=== PATIENT | male | born 1980 | race Caucasian/White ===

== ENCOUNTER 2017-11-13 11:57 | Inpatient (IN) | payer MEDICAID ==
[~2017-11-13] VITALS: Ht 172.7 cm; Wt 82.8 kg
[~2017-11-13 11:57] MED LIST: BENA40TA2 PO; HYDR25TA4 PO
[2017-11-13 12:02] VITALS: BP_SYST 190
[2017-11-13] MEDS ORDERED: BENAZEPRIL HCL 20 MG TABLET (LOTENSIN) PO ONE (12:30)
[2017-11-13] MEDS ORDERED: LOSARTAN POTASSIUM 25 MG TABLET PO ONE (12:30)
[2017-11-13] MEDS ORDERED: cloNIDine HCL 0.2 MG TABLET PO PRN (14:45)
[2017-11-13 14:58] LABS: BASOPHILS # (AUTO) 0.1 K/uL (0.0-0.2); BASOPHILS % (AUTO) 1.5 % (0.0-2.0); EOSINOPHILS # (AUTO) 0.4 K/uL (0.0-0.4); EOSINOPHILS % (AUTO) 5.5 % (0.0-4.0); HEMATOCRIT 39.5 % (36-54); HEMOGLOBIN 13.2 g/dL (14.0-18.0); LYMPHOCYTES # (AUTO) 1.3 K/uL (1.0-5.5); LYMPHOCYTES % (AUTO) 16.1 % (20.5-51.5); MEAN CORPUSCULAR HEMOGLOBIN 28 pg (27-31); MEAN CORPUSCULAR HGB CONC 34 % (32-36); MEAN CORPUSCULAR VOLUME 85 fL (79.0-98.0); MONOCYTES # (AUTO) 0.6 K/uL (0.0-1.0); NEUTROPHILS # (AUTO) 5.5 K/uL (1.8-7.7); NEUTROPHILS % (AUTO) 69.9 % (40.0-70.0); PLATELET COUNT (AUTO) 256 K/uL (130-430); RED BLOOD CELL COUNT(AUTO) 4.65 MIL/uL (4.2-6.2); RED CELL DISTRIBUTION WIDTH 12.6 % (9.0-15.0); WHITE BLOOD COUNT (AUTO) 7.9 K/uL (4.8-10.8)
[2017-11-13 15:14] LABS: CALCIUM 8.9 mg/dL (8.4-11.0); POTASSIUM 4.1 mmol/L (3.5-5.1)
[2017-11-13 15:19] LABS: ALBUMIN 3.4 g/dL (3.4-4.8); TOTAL BILIRUBIN 0.6 mg/dL (0.0-1.0)
[2017-11-13] MEDS ORDERED: LORazepam 2 MG/ML VIAL (FOR ER USE) IVP ONE (15:30)
[2017-11-13 15:49] VITALS: BP_SYST 192
[2017-11-13] MEDS ORDERED: HYDROCHLOROTHIAZIDE 25 MG TABLET (HCTZ) PO ONE (16:00)
[2017-11-13] MEDS ORDERED: ONDANSETRON HCL 4 MG/2 ML VIAL IVP PRN (16:00)
[2017-11-13] MEDS ORDERED: LORazepam 2 MG/ML VIAL IVP PRN (16:00)
[2017-11-13] MEDS ORDERED: DOCUSATE SODIUM 100 MG CAPSULE PO PRN (16:00)
[2017-11-13] MEDS ORDERED: MORPHINE 2 MG/ML INJ. SYRINGE IVP PRN ×2 (16:00)
[2017-11-13] MEDS ORDERED: MUPIROCIN 2% TOPICAL OINTMENT 22 GM NS PRN (16:00)
[2017-11-13] MEDS ORDERED: POTASSIUM CHLORIDE 20 MEQ TAB.PRT.SR PO PRN (16:00)
[2017-11-13] MEDS ORDERED: MAGNESIUM SULFATE 50 ML IV PRN (16:00)
[2017-11-13 16:30] VITALS: BP_SYST 156
[2017-11-13] MEDS: NACL 0.9% 1,000 ML IV SCH (18:09)
[2017-11-13 18:13] VITALS: BP_SYST 175
[2017-11-13 20:52] LABS: BARBITURATE, URINE NEGATIVE (NEG <=200); BENZODIAZEPINE, URINE NEGATIVE (NEG <=150); CANNABINOID, URINE NEGATIVE (NEG <=50); COCAINE, URINE NEGATIVE (NEG <=150); METHAMPHETAMINES SCREEN,URINE POSITIVE (NEG <=500); OPIATE, URINE NEGATIVE (NEG <=100); PHENCYCLIDINE SCREEN,URINE NEGATIVE (NEG <=25); UR TRICYCLIC ANTIDEPRESSANTS NEGATIVE (NEG <=300); URINE AMPHETAMINE POSITIVE (NEG <=500); URINE METHADONE NEGATIVE (NEG <=200); URINE OXYCODONE SCREEN NEGATIVE (NEG <=100); URINE PROPOXYPHENE SCREEN NEGATIVE (NEG <=300)
[2017-11-13] MEDS ORDERED: ZOLPIDEM TARTRATE 5 MG TABLET PO PRN (21:00)
[2017-11-13] MEDS: LISINOPRIL 10 MG TABLET (PRINIVIL) PO SCH (21:12)
[2017-11-13] MEDS: HEPARIN SODIUM,PORCINE 5000 UNITS/ML VIAL SUBCUT SCH (21:13)
[2017-11-14] VITALS (7 sets, daily range): BP systolic 129–176
[2017-11-14] MEDS: ACETAMINOPHEN 325 MG TABLET PO PRN ×3 (01:28→22:36)
[2017-11-14] MEDS: NACL 0.9% 1,000 ML IV SCH ×3 (05:28→15:11)
[2017-11-14 07:28] LABS: BASOPHILS # (AUTO) 0.1 K/uL (0.0-0.2); BASOPHILS % (AUTO) 0.5 % (0.0-2.0); EOSINOPHILS # (AUTO) 0.1 K/uL (0.0-0.4); EOSINOPHILS % (AUTO) 1.4 % (0.0-4.0); HEMATOCRIT 42.7 % (36-54); HEMOGLOBIN 14.2 g/dL (14.0-18.0); LYMPHOCYTES # (AUTO) 0.9 K/uL (1.0-5.5); LYMPHOCYTES % (AUTO) 8.3 % (20.5-51.5); MEAN CORPUSCULAR HEMOGLOBIN 29 pg (27-31); MEAN CORPUSCULAR HGB CONC 33 % (32-36); MEAN CORPUSCULAR VOLUME 86 fL (79.0-98.0); MONOCYTES # (AUTO) 0.2 K/uL (0.0-1.0); MONOCYTES % (AUTO) 2.3 % (1.7-9.3); NEUTROPHILS # (AUTO) 9.1 K/uL (1.8-7.7); PLATELET COUNT (AUTO) 261 K/uL (130-430); RED BLOOD CELL COUNT(AUTO) 4.96 MIL/uL (4.2-6.2); RED CELL DISTRIBUTION WIDTH 12.3 % (9.0-15.0); WHITE BLOOD COUNT (AUTO) 10.4 K/uL (4.8-10.8)
[2017-11-14 07:43] LABS: CALCIUM 9.1 mg/dL (8.4-11.0); CREATININE 2.78 mg/dL (0.55-1.30)
[2017-11-14] MEDS ORDERED: HYDR50TA3 PO (08:02)
[2017-11-14] MEDS: HEPARIN SODIUM,PORCINE 5000 UNITS/ML VIAL SUBCUT SCH ×2 (08:27→22:42)
[2017-11-14] MEDS: LISINOPRIL 10 MG TABLET (PRINIVIL) PO SCH (08:28)
[2017-11-14] MEDS ORDERED: HYDROCHLOROTHIAZIDE 25 MG TABLET (HCTZ) PO SCH (09:00)
[2017-11-14 10:47] LABS: NEUTROPHILS % (AUTO) 87.5 % (40.0-70.0)
[2017-11-14] MEDS ORDERED: hydrALAZINE HCL 25 MG TABLET PO ONE (11:45)
[2017-11-14] MEDS ORDERED: hydrALAZINE HCL 25 MG TABLET PO SCH (15:00)
[2017-11-14] MEDS ORDERED: NIFEDIPINE 30 MG TAB.ER.24 PO SCH (15:00)
[2017-11-14] MEDS ORDERED: NIFEDIPINE 30 MG TAB.ER.24 PO ONE (15:30)
[2017-11-14] MEDS ORDERED: METOPROLOL TARTRATE 50 MG TABLET PO SCH (21:00)
[2017-11-15 00:30] VITALS: BP_SYST 141
[2017-11-15 00:52] VITALS: BP_SYST 129
== END 2017-11-15 01:28 | DRG 199 ==
LOC: SED 11:57 → STU 14:43
PROVIDERS: ADMIT General Practice; ATTEND General Practice
DX: I10 Essential (primary) hypertension (principal); N17.0 Acute kidney failure with tubular necrosis; F15.10 Other stimulant abuse, uncomplicated; F12.10 Cannabis abuse, uncomplicated; F17.210 Nicotine dependence, cigarettes, uncomplicated; Z79.899 Other long term (current) drug therapy
CPT/HCPCS: 36415; 71045; 76770; 80048; 80053; 80307; 83735-TC; 84443-TC; 84484; 85025; 93005; 99285; J1644; J2060; J7030

== ENCOUNTER 2020-08-27 00:05 | Inpatient (IN) | payer OTHER, MEDICAID, SELFPAY ==
[~2020-08-27] VITALS: Ht 175.3 cm; Wt 84.4 kg
[2020-08-27] VITALS (8 sets, daily range): BP systolic 144–181
[~2020-08-27 00:05] MED LIST changes: -BENA40TA2 PO; -HYDR25TA4 PO; +HYDR50TA3 PO
--- NOTE | 2020-08-27 00:08 | NUR ---
pt. brought in by [facility] and placed in er bed 8
--- NOTE | 2020-08-27 00:09 | NUR ---
PT. [facility] PT. DISCHARGED FROM [facility] ON 08/22/2020 AFTER TRASNFUSION OF [facility] FOR COVID POSITIVE TESTING PT. IS ON DIALYSIS - AND HAS RECENTLY BEEN SOB AND RESTLESS x1 DAY PT. STATES HE RECEIVED DIALYSIS TODAY PT. HAS NO PAIN PT. ALLERGIES HISTORY OF DIALYSIS AND HTN PT. SATURATION IS AT 85% ON ROOM AIR
--- NOTE | 2020-08-27 00:10 | NUR ---
PT. PLACED ON 4LPM O2 VIA NASAL CANNULA O2 SATURATION UP TO 95% IN SEMI FOWLERS POSITION
--- NOTE | 2020-08-27 00:10 | NUR ---
ER at bedside examining patient.
[2020-08-27] MEDS ORDERED: NACL 0.9% 1,000 ML IV ONE (00:30)
--- NOTE | 2020-08-27 00:38 | NUR ---
MRSA SWAB OF NARES PERFORMED AT BED BEDSIDE PT. TOLERATED WELL
[2020-08-27] MEDS ORDERED: ACETAMINOPHEN 500 MG TABLET PO ONE (00:45)
[2020-08-27 00:57] LABS: BASOPHILS % (AUTO) 0.4 % (0.0-2.0); EOSINOPHILS % (AUTO) 0.3 % (0.0-4.0); HEMATOCRIT 25.8 % (36-54); HEMOGLOBIN 8.6 g/dL (14.0-18.0); LYMPHOCYTES # (AUTO) 0.4 K/uL (1.0-5.5); LYMPHOCYTES % (AUTO) 4.5 % (20.5-51.5); MEAN CORPUSCULAR HEMOGLOBIN 31 pg (27-31); MEAN CORPUSCULAR HGB CONC 33 % (32-36); MEAN CORPUSCULAR VOLUME 94 fL (79.0-98.0); MONOCYTES # (AUTO) 0.4 K/uL (0.0-1.0); MONOCYTES % (AUTO) 4.5 % (1.7-9.3); NEUTROPHILS # (AUTO) 7.3 K/uL (1.8-7.7); NEUTROPHILS % (AUTO) 90.3 % (40.0-70.0); PLATELET COUNT (AUTO) 150 K/uL (130-430); RED BLOOD CELL COUNT(AUTO) 2.75 MIL/uL (4.2-6.2); RED CELL DISTRIBUTION WIDTH 13.3 % (9.0-15.0); WHITE BLOOD COUNT (AUTO) 8.1 K/uL (4.8-10.8)
--- NOTE | 2020-08-27 01:03 | NUR ---
CRITICAL LAB REPORTING - COVID POSITIVE. AWARE
[2020-08-27 01:15] LABS: CALCIUM 8.4 mg/dL (8.4-11.0); POTASSIUM 5.1 mmol/L (3.5-5.1); PROTHROMBIN TIME 10.5 SECS (9.5-12.5); TOTAL BILIRUBIN 0.5 mg/dL (0.0-1.0)
--- NOTE | 2020-08-27 01:15 | NUR ---
NOTIFIED OF PT. RESTLESSNESS PT. RESPERATION SIN THE 40'S AND PUSLE OX ON 4LPM VIA NASAL CANNULA ONLY AT 88-92% RT PAGED FOR TREATMENT
[2020-08-27] MEDS ORDERED: LevALBUTEROL HCL 1.25 MG/0.5 ML *CONC.* VIAL.NEB (XOPENEX CONC.) INH ONE ×2 (01:21→01:30)
[2020-08-27 01:26] LABS: C-REACTIVE PROTEIN QUANT 11.8 mg/dL (0-0.5)
[2020-08-27] MEDS ORDERED: LORazepam 2 MG/ML VIAL IVP ONE (01:30)
--- NOTE | 2020-08-27 01:30 | NUR ---
RT AT BEDSIDE PLACED PT ON 9LPM OXIMIZER MASK AND XOPENEX AEROSOL TREATMENT
[2020-08-27 01:31] LABS: CREATININE 13.08 mg/dL (0.55-1.30)
[2020-08-27] MEDS ORDERED: ONDANSETRON HCL 4 MG/2 ML VIAL ONE (01:31)
[2020-08-27] MEDS ORDERED: ONDANSETRON HCL 4 MG/2 ML VIAL IVP ONE (01:45)
[2020-08-27] MEDS ORDERED: ASPIRIN 81 MG TAB.CHEW PO ONE (01:45)
--- NOTE | 2020-08-27 01:45 | NUR ---
PT. RESTING IN BED O2 SATURATION ABOVE 95% AFTER TREATMENT AND RESPIRATIONS <30 PT TOLERATED TREATMENT WELL AND NO LONGER RESTLESS
--- NOTE | 2020-08-27 01:50 | NUR ---
ADMIT ORDERS RECEIVED FROM DR. MANDUJANO. TELE BED ORDERED
[2020-08-27] MEDS ORDERED: FURO80TA86 PO (02:08)
[2020-08-27] MEDS ORDERED: COR12.5 PO (02:09)
[2020-08-27] MEDS ORDERED: REN800 PO (02:09)
[2020-08-27] MEDS ORDERED: NEPH PO (02:11)
[2020-08-27] MEDS ORDERED: HYDR-4039 PO (02:11)
--- NOTE | 2020-08-27 02:58 | NUR ---
PT REPORT GIVEN AT BEDSIDE TO ELEUTERIO BRUNO WHO WILL ASSUME CARE
--- NOTE | 2020-08-27 03:30 | NUR ---
Transfer to TELE ROOM 120 via ACLS protocol. Licensed nurse present. IV present no signs or symptoms of infiltration.
--- NOTE | 2020-08-27 03:35 | NUR ---
ADMISSION NOTE Received patient from ER via gurney. Patient admitted with diagnosis of COVID POSITIVE, RENAL FAILURE. Patient is awake, alert, oriented X 3. Patient oriented to hospital room, call light, toileting, pain management and safety-teach back done. Patient informed that YOVANNY will be HIS nurse and that their room number is 120B. Personal belongings checked and Belongings List documented. Call light within reach.
--- NOTE | 2020-08-27 03:50 | NUR ---
Paged Dr. Marley Carlos
--- NOTE | 2020-08-27 04:00 | NUR ---
STAT CONSULT PAGED Reason for Consultation: COVID Was consult called: Y Person who was notified: Daly Consulting Physician: Dr. Metz (Dr. Mendoza is contract technician) Ordering Physician: Carlos Doherty
--- NOTE | 2020-08-27 04:02 | NUR ---
STAT CONSULT PAGED Reason for Consultation: ESRD Was consult called: Y Person who was notified: [place]aly Consulting Physician: Loren Field (Dr. Powell is transportation broker) Ordering Physician: Carlos Doherty
--- NOTE | 2020-08-27 04:10 | NUR ---
INITIAL NOTE AT INITIAL ASSESSMENT, PATIENT IS VERY SLEEPY BUT AROUSABLE, STABLE, NO SIGNS OF RESPIRATORY DISTRESS. PATIENT VERBALIZES NO PAIN. PLAN OF CARE FOR THE EVENING IS COMMUNICATED WITH THE PATIENT. PATIENT DEMONSTRATES CORRECT USAGE OF CALL LIGHT AT THIS TIME. BED IS LOCKED, ALARMED, AND AT THE LOWEST LEVEL. FALL SAFETY EDUCATION PROVIDED. FALL, SAFETY, ASPIRATION, ISOLATION, AND RESPIRATORY PRECAUTIONS WILL BE TAKEN THROUGHOUT THE SHIFT.
[2020-08-27] MEDS ORDERED: ACETAMINOPHEN 325 MG TABLET PO PRN (06:30)
[2020-08-27] MEDS ORDERED: ALBUTEROL SULFATE 0.083% 2.5 MG/3 ML VIAL.NEB INH PRN (06:30)
[2020-08-27] MEDS ORDERED: LORazepam 2 MG/ML VIAL IVP PRN (06:30)
[2020-08-27] MEDS ORDERED: HYDROcodone/ACETAMIN 5-325 MG TAB (NORCO/ VICODIN) PO PRN (06:30)
[2020-08-27] MEDS ORDERED: ONDANSETRON HCL 4 MG/2 ML VIAL IVP PRN (06:30)
[2020-08-27] MEDS ORDERED: NALOXONE HCL 0.4 MG/ML AMP (NARCAN) IVP PRN ×2 (06:30)
[2020-08-27] MEDS ORDERED: HYDROcodone/ACETAMIN 10-325 MG TAB PO PRN (06:30)
--- NOTE | 2020-08-27 06:45 | NUR ---
CONSULT CARDIOLOGY ELEVATED TROPONIN DR MANDUJANO,[facility] [place] [id number] S/W DIOGO EXCHANGE
--- NOTE | 2020-08-27 06:50 | NUR ---
CLOSING NOTE PATIENT WAS VERY SLEEPY DURING THE SHIFT, HE WAS TOO SLEEPY TO BE ABLE TO ANSWER MOST ASSESSMENT QUESTIONS. HE SLEPT WELL THROUGHOUT THE SHIFT, NO SHORTNESS OF BREATH NOTED. AT THIS TIME, PATIENT IS RESTING IN BED, STABLE, NO SIGNS OF RESPIRATORY DISTRESS. CALL LIGHT IS WITHIN REACH. BED IS LOCKED, ALARMED, AND AT THE LOWEST LEVEL. FALL, SAFETY, ASPIRATION, ISOLATION, AND RESPIRATORY PRECAUTIONS HAVE BEEN TAKEN THROUGHOUT THE SHIFT. WILL CONTINUE TO MONITOR UNTIL SHIFT REPORT IS GIVEN AT BEDSIDE TO AM NURSE.
--- NOTE | 2020-08-27 07:40 | NUR ---
Nutrition Update Elijah Scale 18 noted. Pt admitted for COVID-19 Positive, Renal failure Diet: no diet order BMI: 27.2 kg/m2 RD to follow per nutrition care standards.
--- NOTE | 2020-08-27 07:40 | NUR ---
HIGH ALERT NOTE: Called Dr. MARADIAGA back at [phone] identified within the medical roster to verify physician authenticity.
[2020-08-27] MEDS ORDERED: hydrALAZINE HCL 20 MG/ML VIAL IVP PRN (07:45)
--- NOTE | 2020-08-27 08:00 | NUR ---
AM ROUNDS: PATIENT COVID 19 POSITIVE.CONTACT AIRBORNE AND DROPLET PRECAUTION RENDERED. ON OXYMIZER @ 4L/IN,GOOD SATURATION. PATIENT SLEEPING DURING ROUNDS.
[2020-08-27 08:12] LABS: BASOPHILS % (AUTO) 0.5 % (0.0-2.0); EOSINOPHILS % (AUTO) 0.1 % (0.0-4.0); HEMATOCRIT 26.5 % (36-54); HEMOGLOBIN 8.7 g/dL (14.0-18.0); LYMPHOCYTES # (AUTO) 0.6 K/uL (1.0-5.5); MEAN CORPUSCULAR HEMOGLOBIN 31 pg (27-31); MEAN CORPUSCULAR HGB CONC 33 % (32-36); MEAN CORPUSCULAR VOLUME 94 fL (79.0-98.0); MONOCYTES # (AUTO) 0.3 K/uL (0.0-1.0); MONOCYTES % (AUTO) 3.4 % (1.7-9.3); NEUTROPHILS # (AUTO) 7.6 K/uL (1.8-7.7); PLATELET COUNT (AUTO) 157 K/uL (130-430); RED CELL DISTRIBUTION WIDTH 13.7 % (9.0-15.0); WHITE BLOOD COUNT (AUTO) 8.5 K/uL (4.8-10.8)
[2020-08-27 08:45] LABS: CALCIUM 8.4 mg/dL (8.4-11.0); POTASSIUM 5.6 mmol/L (3.5-5.1)
[2020-08-27] MEDS: hydrALAZINE HCL 25 MG TABLET PO SCH ×3 (08:55→21:12)
[2020-08-27] MEDS: HYDROCHLOROTHIAZIDE 25 MG TABLET (HCTZ) PO SCH (08:55)
[2020-08-27] MEDS: CARVEDILOL 12.5 MG TABLET (COREG) PO SCH (08:55)
[2020-08-27] MEDS: NEPHROVITE, (FOLIC ACID/VITAMIN B COMP W-C 1 TAB) PO SCH (08:56)
[2020-08-27] MEDS: FUROSEMIDE 80 MG TABLET PO SCH (08:56)
[2020-08-27] MEDS: SEVELAMER CARBONATE 800 MG TABLET PO SCH (08:56)
[2020-08-27 08:58] LABS: ALBUMIN 2.6 g/dL (3.4-4.8); TOTAL BILIRUBIN 0.5 mg/dL (0.0-1.0)
[2020-08-27] MEDS ORDERED: cefTRIAXone 1 GM IVPB PREMIX 50 ML IV SCH (09:00)
[2020-08-27] MEDS ORDERED: SEVELAMER HCL Non-Formulary 800 MG TABLET PO SCH (09:00)
[2020-08-27 09:44] LABS: CREATININE 13.76 mg/dL (0.55-1.30)
[2020-08-27] MEDS: IPRATROPIUM BROM 0.5 MG/2.5 ML VIAL.NEB (ATROVENT) INH SCH ×3 (10:43→15:00)
[2020-08-27] MEDS: AZITHROMYCIN 500 MG in NS 250 ML IV SCH (11:10)
--- NOTE | 2020-08-27 12:03 | NUR ---
HD: HD STARTED BY FELICIANO. STABLE.
[2020-08-27] MEDS ORDERED: NORMAL SALINE 5 ML DISP.SYRIN IVF SCH (14:00)
--- NOTE | 2020-08-27 15:03 | NUR ---
HD FINISH: HD FINISHED. OUT=3LITERS.
[2020-08-27] MEDS: ACETAMINOPHEN 325 MG TABLET PO PRN (15:08)
[2020-08-27] MEDS: NORMAL SALINE 5 ML DISP.SYRIN IVF SCH ×2 (15:09→21:12)
--- NOTE | 2020-08-27 15:23 | NUR ---
Called pts mother: Left message to pt's mother P#[phone].
[2020-08-27] MEDS ORDERED: *LOVENOX 1MG/KG Q24H/PHARMACY XX ONE (17:45)
[2020-08-27] MEDS ORDERED: IVERMECTIN 3 MG TABLET PO ONE (17:45)
[2020-08-27] MEDS: CEFEPIME 1 GM in D5W 50 ML IV SCH (17:45)
[2020-08-27] MEDS: ENOXAPARIN SODIUM 80 MG/0.8 ML SYRINGE SUBCUT SCH (18:00)
[2020-08-27] MEDS: DEXAMETHASONE SOD PHOSPHATE 10 MG/ML VIAL IVP SCH (18:00)
--- NOTE | 2020-08-27 19:30 | NUR ---
END OF SHIFT: ENDORSED TO NIGHT NURSE KONG,PATIENT IN STABLE CONDITION. MAINTAINED ON OXYMIZER @ 4L/MIN.WITH GOOD SATURATION. SAFETY MEASURES RENDERED.
--- NOTE | 2020-08-27 20:45 | NUR ---
Opening notes Pt AAOx4, VSS, afebrile. No s/s distress noted. Pt on O2 via Oxymizer saturation at 97%. IV saline lock R. AC 18G no s/s infiltration. L arm AV shunt, thrill and bruit present. Call light within reach. Bed low, locked siderails up x2. To monitor.
--- NOTE | 2020-08-27 23:40 | NUR ---
Rounds Pt awake, no s/s distress noted. [place] provided per pt request. Call light within reach. Safety maintained. To monitor.
[2020-08-28] VITALS: BP_SYST 177
--- NOTE | 2020-08-28 01:50 | NUR ---
Consent/BP med Pt informed of Dora ULRICH order for Convalescent plasma. Pt agreeable but states he received it from [facility] a week ago. Informed pt of BP 177/95. Pt refused BP med at this time. Pt aware of risk/benefit Pt denies discomfort or headache. Call light within reach. To monitor.
--- NOTE | 2020-08-28 05:30 | NUR ---
Closing notes Pt asleep, no s/s distress noted. Pt on O2 via Oxymizer saturation at 96%. IV saline lock R. AC 18G no s/s infiltration. Call light within reach. Bed low, locked siderails up x2. Covid isolation maintained. To endorse to AM nurse re convalescent plasma. Consent in chart.
[2020-08-28] MEDS: NORMAL SALINE 5 ML DISP.SYRIN IVF SCH ×3 (06:52→20:51)
[2020-08-28 07:58] LABS: BASOPHILS % (AUTO) 0.1 % (0.0-2.0); HEMATOCRIT 29.9 % (36-54); HEMOGLOBIN 10.1 g/dL (14.0-18.0); LYMPHOCYTES # (AUTO) 0.3 K/uL (1.0-5.5); LYMPHOCYTES % (AUTO) 4.3 % (20.5-51.5); MEAN CORPUSCULAR HEMOGLOBIN 31 pg (27-31); MEAN CORPUSCULAR HGB CONC 34 % (32-36); MEAN CORPUSCULAR VOLUME 93 fL (79.0-98.0); MONOCYTES # (AUTO) 0.2 K/uL (0.0-1.0); MONOCYTES % (AUTO) 2.3 % (1.7-9.3); NEUTROPHILS # (AUTO) 7.2 K/uL (1.8-7.7); NEUTROPHILS % (AUTO) 93.3 % (40.0-70.0); PLATELET COUNT (AUTO) 183 K/uL (130-430); RED BLOOD CELL COUNT(AUTO) 3.22 MIL/uL (4.2-6.2); RED CELL DISTRIBUTION WIDTH 13.4 % (9.0-15.0); WHITE BLOOD COUNT (AUTO) 7.7 K/uL (4.8-10.8)
[2020-08-28 08:09] LABS: CALCIUM 8.8 mg/dL (8.4-11.0); PHOSPHORUS 7.8 mg/dL (2.7-4.5); POTASSIUM 5.3 mmol/L (3.5-5.1)
--- NOTE | 2020-08-28 08:10 | NUR ---
AM ROUNDS: PATIENT ON THE BED AWAKE,ALERT AND ORIENTED X4. NON LABORED.ON OXYMIZER @ 3L/MIN.GOOD SATURATION. CALL LIGHT WITH IN REACH. BED LOCKED AT LOWEST POSITION. NO NEEDS THIS TIME.
[2020-08-28 08:16] LABS: CREATININE 10.9 mg/dL (0.55-1.30)
[2020-08-28 08:42] LABS: C-REACTIVE PROTEIN QUANT 14.9 mg/dL (0-0.5)
[2020-08-28] MEDS: hydrALAZINE HCL 25 MG TABLET PO SCH ×3 (08:50→20:52)
[2020-08-28] MEDS: FUROSEMIDE 80 MG TABLET PO SCH (08:51)
[2020-08-28] MEDS: HYDROCHLOROTHIAZIDE 25 MG TABLET (HCTZ) PO SCH (08:51)
[2020-08-28] MEDS: CARVEDILOL 12.5 MG TABLET (COREG) PO SCH (08:51)
[2020-08-28] MEDS: SEVELAMER CARBONATE 800 MG TABLET PO SCH (08:52)
[2020-08-28] MEDS: NEPHROVITE, (FOLIC ACID/VITAMIN B COMP W-C 1 TAB) PO SCH (08:52)
[2020-08-28 08:57] VITALS: BP_SYST 167
[2020-08-28] MEDS: AZITHROMYCIN 500 MG in NS 250 ML IV SCH (09:44)
[2020-08-28] MEDS: IPRATROPIUM BROM 0.5 MG/2.5 ML VIAL.NEB (ATROVENT) INH SCH (11:00)
[2020-08-28] MEDS ORDERED: ALBUTEROL MDI INHALATION 8 GM INH INH PRN (12:15)
[2020-08-28 12:37] VITALS: BP_SYST 151
[2020-08-28] MEDS: ACETAMINOPHEN 325 MG TABLET PO PRN (13:05)
[2020-08-28 16:13] VITALS: BP_SYST 169
[2020-08-28] MEDS: DEXAMETHASONE SOD PHOSPHATE 10 MG/ML VIAL IVP SCH (17:21)
[2020-08-28] MEDS: CEFEPIME 1 GM in D5W 50 ML IV SCH (17:21)
[2020-08-28] MEDS: ENOXAPARIN SODIUM 80 MG/0.8 ML SYRINGE SUBCUT SCH (17:23)
[2020-08-28 18:35] VITALS: BP_SYST 159
--- NOTE | 2020-08-28 19:20 | NUR ---
END OF SHIFT: ENDORSED TO NIGHT NURSE KONG,PATIENT IN STABLE CONDITION. MAINTAINED OXYMIZER @ 2L/MIN.WITH GOOD SATURATION.CALL LIGHT WITH IN REACH. SAFETY MEASURES RENDERED. NO NEEDS THIS TIME.
--- NOTE | 2020-08-28 19:50 | NUR ---
Opening notes Pt AAOx4, VSS, afebrile. No s/s distress noted. Pt on O2 via 2L Oxymizer saturation at 96%. IV saline lock R. AC 18G no s/s infiltration. L arm AV shunt, thrill and bruit present. Call light within reach. Bed low, locked siderails up x2. Covid isolation maintained. To monitor.
[2020-08-28 20:00] VITALS: BP_SYST 144
--- NOTE | 2020-08-28 21:00 | NUR ---
Rounds Pt awake, no s/s distress noted. Meds passed. [place] provided per pt request. Call light within reach. Safety maintained. To monitor.
[2020-08-29 00:25] VITALS: BP_SYST 165
--- NOTE | 2020-08-29 00:25 | NUR ---
Rounds Pt awake, no s/s distress noted. O2 via oxymizer on. Call light within reach. Safety/Covid isolation maintained. To monitor.
--- NOTE | 2020-08-29 03:17 | NUR ---
Covid PCR + Rec'd call from lab Covid PCR +, paged and informed Dr. Metz, no new orders.
--- NOTE | 2020-08-29 05:26 | NUR ---
Closing notes Pt asleep, no s/s distress noted. Pt on O2 2L via Oxymizer saturation at 96%. IV saline lock R. AC 18G no s/s infiltration. Pt to have dialysis today. Call light within reach. Bed low, locked siderails up x2. Covid isolation maintained. To endorse to AM nurse.
--- NOTE | 2020-08-29 06:30 | NUR ---
CXR at bedside.
[2020-08-29] MEDS: NORMAL SALINE 5 ML DISP.SYRIN IVF SCH ×3 (06:48→20:32)
[2020-08-29 07:04] LABS: BASOPHILS % (AUTO) 0.3 % (0.0-2.0); EOSINOPHILS % (AUTO) 0.1 % (0.0-4.0); HEMOGLOBIN 9.5 g/dL (14.0-18.0); LYMPHOCYTES # (AUTO) 0.5 K/uL (1.0-5.5); LYMPHOCYTES % (AUTO) 8.8 % (20.5-51.5); MEAN CORPUSCULAR HEMOGLOBIN 32 pg (27-31); MEAN CORPUSCULAR HGB CONC 34 % (32-36); MEAN CORPUSCULAR VOLUME 92 fL (79.0-98.0); MONOCYTES # (AUTO) 0.4 K/uL (0.0-1.0); MONOCYTES % (AUTO) 7.1 % (1.7-9.3); NEUTROPHILS # (AUTO) 4.3 K/uL (1.8-7.7); NEUTROPHILS % (AUTO) 83.7 % (40.0-70.0); PLATELET COUNT (AUTO) 197 K/uL (130-430); RED BLOOD CELL COUNT(AUTO) 3.03 MIL/uL (4.2-6.2); RED CELL DISTRIBUTION WIDTH 13.4 % (9.0-15.0)
[2020-08-29 07:42] LABS: CALCIUM 8.6 mg/dL (8.4-11.0); PHOSPHORUS 8.1 mg/dL (2.7-4.5); POTASSIUM 5.5 mmol/L (3.5-5.1)
[2020-08-29 08:00] VITALS: BP_SYST 170
[2020-08-29 08:12] LABS: WHITE BLOOD COUNT (AUTO) 5.2 K/uL (4.8-10.8)
[2020-08-29] MEDS: hydrALAZINE HCL 25 MG TABLET PO SCH ×3 (08:20→20:32)
[2020-08-29] MEDS: NEPHROVITE, (FOLIC ACID/VITAMIN B COMP W-C 1 TAB) PO SCH (08:20)
[2020-08-29] MEDS: HYDROCHLOROTHIAZIDE 25 MG TABLET (HCTZ) PO SCH (08:20)
[2020-08-29] MEDS: SEVELAMER CARBONATE 800 MG TABLET PO SCH (08:20)
[2020-08-29] MEDS: CARVEDILOL 12.5 MG TABLET (COREG) PO SCH (08:20)
[2020-08-29] MEDS: FUROSEMIDE 80 MG TABLET PO SCH (08:20)
--- NOTE | 2020-08-29 08:20 | NUR ---
OPENING NOTES/ ROUTINE MEDS PT AWAKE AND ALERT, EATING BREAKFAST IN BED, SITTING UP. NONLABORED BREATHING NOTED, PT RECEIVING O2 AT 2LPM VIA OXYMIZER, TOLERATING WELL. IV LINE INTACT AND PATENT, NO SIGNS OF INFILTRATION NOTED. NO ACUTE DISTRESS NOTED. ALL NEEDS MET. CALL LIGHT IN REACH. FALL AND ASPIRATION AND ISOLATION PRECAUTIONS IN PLACE. ROUTINE MEDS ADMINISTERED ORDERED PER MD, EDUCATION GIVEN, TOLERATED WELL. CONTINUE TO MONITOR.
[2020-08-29 08:21] LABS: CREATININE 13.37 mg/dL (0.55-1.30)
[2020-08-29] MEDS: AZITHROMYCIN 500 MG in NS 250 ML IV SCH (09:00)
--- NOTE | 2020-08-29 09:00 | NUR ---
PT ASKED FOR ANOTHER FOOD TRAY, RECEIVED FOOD TRAY FROM DIETARY, GIVEN TO PT. ADMINISTERED IV ABX ORDERED PER MD, EDUCATION GIVEN, TOLERATED WELL. CONTINUE TO MONITOR.
[2020-08-29 09:24] LABS: ERYTHROCYTE SEDIMENTATION RATE 28 MM/HR (0-15)
--- NOTE | 2020-08-29 10:20 | NUR ---
SPOKE TO DR. MANDUJANO REGARDING MEDICATIONS THAT PATIENT TAKES AT HOME FOR MIGRAINES. RECEIVED ORDERS, VERIFIED, AND CARRIED OUT.
--- NOTE | 2020-08-29 10:30 | NUR ---
ROUNDS PT WATCHING TV, NO ACUTE DISTRESS NOTED. ALL NEEDS MET. CALL LIGHT IN REACH. CONTINUE TO MONITOR.
[2020-08-29] MEDS ORDERED: BACLOFEN 10 MG TABLET PO PRN (10:45)
[2020-08-29] MEDS ORDERED: MELOXICAM 7.5 MG TABLET PO PRN (10:45)
--- NOTE | 2020-08-29 11:30 | NUR ---
PATIENT RECEIVING DIALYSIS AT THIS TIME. CONTINUE TO MONITOR.
[2020-08-29 12:00] VITALS: BP_SYST 164
--- NOTE | 2020-08-29 12:00 | NUR ---
VITAL SIGNS TAKEN AND STABLE. RECEIVING DIALYSIS AT THIS TIME. SET LUNCH TRAY AT BEDSIDE.
--- NOTE | 2020-08-29 14:44 | NUR ---
Dietitian Recommendations *Recommend continue Renal Standard Diet *Recommend add CCHO modifier onto Renal Standard Diet if pt's BG labs continues to be elevated, given pt's hx of DM. *Consider potassium binding meds or kayexalate PRN if not contraindicated and when medically feasible. Please see Nutrition Assessment for details. EP,RD
--- NOTE | 2020-08-29 15:00 | NUR ---
PATIENT FINISHED WITH DIALYSIS, 3L TAKEN OUT. ROUTINE MEDS ADMINISTERED ORDERED PER MD, EDUCATION GIVEN, TOLERATED WELL. CONTINUE TO MONITOR.
--- NOTE | 2020-08-29 15:32 | NUR ---
SPOKE TO DR. LAWSON AT NURSE'S STATION, MADE MD AWARE OF DR. CASTREJON'S NOTE REGARDING CONVALESCENT PLASMA. RECEIVED ORDERS TO CANCEL CONVALESCENT PLASMA, VERIFIED, AND CARRIED OUT.
[2020-08-29 16:24] VITALS: BP_SYST 138
[2020-08-29] MEDS: DEXAMETHASONE SOD PHOSPHATE 10 MG/ML VIAL IVP SCH (17:48)
[2020-08-29] MEDS: CEFEPIME 1 GM in D5W 50 ML IV SCH (17:48)
[2020-08-29] MEDS: ENOXAPARIN SODIUM 80 MG/0.8 ML SYRINGE SUBCUT SCH (17:49)
--- NOTE | 2020-08-29 17:50 | NUR ---
ROUTINE MEDS ADMINISTERED ORDERED PER MD, EDUCATION GIVEN, TOLERATED WELL. CONTINUE TO MONITOR.
--- NOTE | 2020-08-29 19:09 | NUR ---
CLOSING NOTES PT AWAKE AND ALERT. IV LINE INTACT AND PATENT, NO SIGNS OF INFILTRATION NOTED. NO ACUTE DISTRESS NOTED. ALL NEEDS MET. CALL LIGHT IN REACH. FALL, ASPIRATION, AND ISOLATION PRECAUTIONS IN PLACE. WILL ENDORSE TO NOC NURSE.
--- NOTE | 2020-08-29 19:35 | NUR ---
INITIAL NOTE PATIENT IS STABLE AND LAYING IN BED. NO S/S OF RESPIRATORY DISTRESS NOTED. CALL LIGHT IN REACH. PATIENT SUCCESSFULLY DEMONSTRATES USAGE OF CALL LIGHT. BED IS LOCKED, AND AT THE LOWEST POSITION. PATIENT EDUCATED ON BED ALARM, PT REFUSED. PLAN OF CARE IS DISCUSSED WITH PATIENT. FALL, SAFETY, ASPIRATION, AND RESPIRATORY PRECAUTIONS WILL BE IN PLACE THROUGHOUT THE SHIFT.
[2020-08-29 19:45] VITALS: BP_SYST 155
--- NOTE | 2020-08-29 21:35 | NUR ---
PT REQUESTED FOR 2 SANDWICH AT THIS TIME. PT TOLERATED WELL. NO S/S OF RESPIRATORY DISTRESS NOTED.
--- NOTE | 2020-08-29 23:35 | NUR ---
PT REQUESTED FOR 1 APPLESAUCE AT THIS TIME. PT TOLERATED WELL. NO S/S OF RESPIRATORY DISTRESS NOTED.
[2020-08-30] VITALS: BP_SYST 159
--- NOTE | 2020-08-30 01:35 | NUR ---
PT REQUESTED FOR 1 JELLO AT THIS TIME. PT TOLERATED WELL. NO S/S OF RESPIRATORY DISTRESS NOTED.
[2020-08-30] MEDS: NORMAL SALINE 5 ML DISP.SYRIN IVF SCH ×3 (07:03→21:22)
[2020-08-30 07:04] LABS: BASOPHILS % (AUTO) 0.2 % (0.0-2.0); HEMATOCRIT 28.1 % (36-54); HEMOGLOBIN 9.6 g/dL (14.0-18.0); LYMPHOCYTES # (AUTO) 0.6 K/uL (1.0-5.5); LYMPHOCYTES % (AUTO) 8.5 % (20.5-51.5); MEAN CORPUSCULAR HEMOGLOBIN 32 pg (27-31); MEAN CORPUSCULAR HGB CONC 34 % (32-36); MEAN CORPUSCULAR VOLUME 92 fL (79.0-98.0); MONOCYTES # (AUTO) 0.4 K/uL (0.0-1.0); MONOCYTES % (AUTO) 5.1 % (1.7-9.3); NEUTROPHILS # (AUTO) 6.5 K/uL (1.8-7.7); NEUTROPHILS % (AUTO) 86.2 % (40.0-70.0); PLATELET COUNT (AUTO) 238 K/uL (130-430); RED BLOOD CELL COUNT(AUTO) 3.05 MIL/uL (4.2-6.2); RED CELL DISTRIBUTION WIDTH 13.5 % (9.0-15.0); WHITE BLOOD COUNT (AUTO) 7.5 K/uL (4.8-10.8)
--- NOTE | 2020-08-30 07:23 | NUR ---
CLOSING NOTE PATIENT IS STABLE AND RESTING IN BED. NO S/S OF RESPIRATORY DISTRESS NOTED. CALL LIGHT IN REACH. BED IS LOCKED, AND AT THE LOWEST POSITION. FALL, SAFETY, ASPIRATION, COVID, AND RESPIRATORY PRECAUTIONS HAS BEEN IN PLACE THROUGHOUT THE SHIFT. SBAR REPORT IS ENDORSED TO AM NURSE.
[2020-08-30 08:00] VITALS: BP_SYST 180
--- NOTE | 2020-08-30 08:30 | NUR ---
OPENING NOTES/ ROUTINE MEDS PT AWAKE AND ALERT, NONLABORED BREATHING NOTED ON ROOM AIR, TOLERATING WELL. IV LINE INTACT AND PATENT, NO SIGNS OF INFILTRATION NOTED. NO ACUTE DISTRESS NOTED. ROUTINE MEDS ADMINISTERED ORDERED PER MD, EDUCATION GIVEN, PT VERBALIZED UNDERSTANDING, TOLERATED WELL. ALL NEEDS MET. CALL LIGHT IN REACH. FALL, ASPIRATION, AND ISOLATION PRECAUTIONS IN PLACE. CONTINUE TO MONITOR.
[2020-08-30] MEDS: SEVELAMER CARBONATE 800 MG TABLET PO SCH (08:32)
[2020-08-30] MEDS: HYDROCHLOROTHIAZIDE 25 MG TABLET (HCTZ) PO SCH (08:32)
[2020-08-30 08:33] LABS: ERYTHROCYTE SEDIMENTATION RATE 34 MM/HR (0-15)
[2020-08-30] MEDS: hydrALAZINE HCL 25 MG TABLET PO SCH ×3 (08:33→21:09)
[2020-08-30] MEDS: CARVEDILOL 12.5 MG TABLET (COREG) PO SCH (08:33)
[2020-08-30] MEDS: NEPHROVITE, (FOLIC ACID/VITAMIN B COMP W-C 1 TAB) PO SCH (08:33)
[2020-08-30] MEDS: FUROSEMIDE 80 MG TABLET PO SCH (08:33)
[2020-08-30] MEDS: AZITHROMYCIN 500 MG in NS 250 ML IV SCH (10:28)
--- NOTE | 2020-08-30 10:32 | NUR ---
IV ABX ADMINISTERED ORDERED PER MD, EDUCATION GIVEN, TOLERATED WELL. PT REQUESTED FOR ANOTHER TRAY EARLIER, CALLED DIETARY 3X, GAVE SNACKS TO PT, TOLERATED WELL. CONTINUE TO MONITOR.
[2020-08-30 12:00] VITALS: BP_SYST 159
[2020-08-30 12:23] LABS: C-REACTIVE PROTEIN QUANT 6.8 mg/dL (0-0.5); CALCIUM 9.1 mg/dL (8.4-11.0); PHOSPHORUS 6.6 mg/dL (2.7-4.5); POTASSIUM 5.3 mmol/L (3.5-5.1)
[2020-08-30 12:24] LABS: CREATININE 11.56 mg/dL (0.55-1.30)
--- NOTE | 2020-08-30 14:27 | NUR ---
routine meds administered as ordered per md, education given, tolerated well. pt requested applesauce and crackers, given snacks requested. continue to monitor.
[2020-08-30 16:00] VITALS: BP_SYST 151
--- NOTE | 2020-08-30 16:56 | NUR ---
INFORMED CARI TO TELL ELEUTERIO RASHID THAT PT IS DOWNGRADED TO MEDSURGE STATUS.
[2020-08-30] MEDS: CEFEPIME 1 GM in D5W 50 ML IV SCH (18:38)
[2020-08-30] MEDS: ENOXAPARIN SODIUM 80 MG/0.8 ML SYRINGE SUBCUT SCH (18:38)
[2020-08-30] MEDS: DEXAMETHASONE SOD PHOSPHATE 10 MG/ML VIAL IVP SCH (18:38)
--- NOTE | 2020-08-30 18:45 | NUR ---
ROUTINE MEDS ADMINISTERED ORDERED PER MD, EDUCATION GIVEN, TOLERATED WELL. CONTINUE TO MONITOR
[2020-08-30] MEDS ORDERED: traZODone HCL 50 MG TABLET (DESYREL) PO PRN (19:00)
--- NOTE | 2020-08-30 19:00 | NUR ---
CLOSING NOTES PT AWAKE AND ALERT, NONLABORED BREATHING NOTED ON ROOM AIR, TOLERATING WELL. IV LINE INTACT AND PATENT, NO SIGNS OF INFILTRATION NOTED. NO ACUTE DISTRESS NOTED. ALL NEEDS MET. CALL LIGHT IN REACH. FALL, ASPIRATION, AND ISOLATION PRECAUTIONS IN PLACE. ENDORSED CARE TO ELEUTERIO MENDEZ. PT C/O NOT BEING ABLE TO SLEEP, SPOKE TO DR. MANDUJANO AT NURSE'S STATION, RECEIVED ORDERS, VERIFIED, AND CARRIED OUT
--- NOTE | 2020-08-30 19:35 | NUR ---
INITIAL NOTE PATIENT IS RESTING IN BED, ALERT, AWAKE, ORIENTED X 4.STABLE, NO SIGNS OF RESPIRATORY DISTRESS. NO PAIN, PATIENT VERBALIZES NO PAIN. PLAN OF CARE FOR THE EVENING IS COMMUNICATED WITH THE PATIENT. PATIENT DEMONSTRATES CORRECT USAGE OF CALL LIGHT AT THIS TIME. BED IS LOCKED, ALARMED, AND AT THE LOWEST LEVEL. FALL SAFETY EDUCATION PROVIDED. FALL, SAFETY, AND RESPIRATORY PRECAUTIONS WILL BE TAKEN THROUGHOUT THE SHIFT. COVID ISOLATION
[2020-08-30 21:02] VITALS: BP_SYST 163
--- NOTE | 2020-08-30 22:00 | NUR ---
WATCHING TV. STABLE, NO TOLBERT, CALL LIGHT IN REACH. SAFETY PRECAUTION IN PLACE. WILL MONITOR.
[2020-08-31] VITALS: BP_SYST 153
--- NOTE | 2020-08-31 | NUR ---
SLEEPING, NO PAIN, STABLE VITAL SIGN, NEEDS ATTENDED. CALL LIGHT WITH THE PT. FÉLIX BARRETT.
--- NOTE | 2020-08-31 02:00 | NUR ---
SLEEPING, COMFORTABLE, NOT DISTRESS, CALL LIGHT IN REACH. WILL MONITOR.
--- NOTE | 2020-08-31 04:16 | NUR ---
SLEEPING ON HIS SIDE, COMFORTABLE, NO SOB, NO PAIN, COVID ISOLATION. SAFETY PRECAUTION IN PLACE. WILL CONTINUE MONITOR.
--- NOTE | 2020-08-31 06:00 | NUR ---
awake, alert, no complain, no sob, stable. covid isolation., needs attended.
[2020-08-31] MEDS: NORMAL SALINE 5 ML DISP.SYRIN IVF SCH (06:18)
[2020-08-31 07:09] LABS: BASOPHILS % (AUTO) 0.3 % (0.0-2.0); HEMATOCRIT 26.5 % (36-54); LYMPHOCYTES # (AUTO) 0.9 K/uL (1.0-5.5); LYMPHOCYTES % (AUTO) 10.9 % (20.5-51.5); MEAN CORPUSCULAR HEMOGLOBIN 31 pg (27-31); MEAN CORPUSCULAR HGB CONC 34 % (32-36); MEAN CORPUSCULAR VOLUME 92 fL (79.0-98.0); MONOCYTES # (AUTO) 0.5 K/uL (0.0-1.0); MONOCYTES % (AUTO) 5.8 % (1.7-9.3); NEUTROPHILS # (AUTO) 6.7 K/uL (1.8-7.7); PLATELET COUNT (AUTO) 227 K/uL (130-430); RED BLOOD CELL COUNT(AUTO) 2.88 MIL/uL (4.2-6.2); RED CELL DISTRIBUTION WIDTH 13.2 % (9.0-15.0); WHITE BLOOD COUNT (AUTO) 8.1 K/uL (4.8-10.8)
--- NOTE | 2020-08-31 07:21 | NUR ---
CLOSING: PATIENT IS RESTING IN BED, ALERT, AWAKE, ORIENTED X 4.STABLE, NO SIGNS OF RESPIRATORY DISTRESS. NO PAIN, PATIENT VERBALIZES NO PAIN. BED IS LOCKED AND AT THE LOWEST LEVEL. COVID ISOLATION. NEED ATTENDED THE WHOLE SHIFT, SBAR REPORT GIVEN TO AM RN.
[2020-08-31 08:00] VITALS: BP_SYST 163
--- NOTE | 2020-08-31 08:00 | NUR ---
Notes- Sitting at the edge of the bed, eating breakfast. on room air, denies any pain or shortness of breath. for dialysis today. will held BP meds. Will continue to monitor.
[2020-08-31 08:18] LABS: ALBUMIN 2.8 g/dL (3.4-4.8); CALCIUM 8.8 mg/dL (8.4-11.0); PHOSPHORUS 6.2 mg/dL (2.7-4.5); TOTAL BILIRUBIN 0.5 mg/dL (0.0-1.0)
[2020-08-31] MEDS: SEVELAMER CARBONATE 800 MG TABLET PO SCH (08:27)
[2020-08-31] MEDS: NEPHROVITE, (FOLIC ACID/VITAMIN B COMP W-C 1 TAB) PO SCH (08:28)
[2020-08-31 08:51] LABS: CREATININE 13.78 mg/dL (0.55-1.30)
[2020-08-31] MEDS: HYDROCHLOROTHIAZIDE 25 MG TABLET (HCTZ) PO SCH (09:00)
[2020-08-31] MEDS: FUROSEMIDE 80 MG TABLET PO SCH (09:00)
[2020-08-31] MEDS: hydrALAZINE HCL 25 MG TABLET PO SCH ×2 (09:00→15:50)
[2020-08-31] MEDS: CARVEDILOL 12.5 MG TABLET (COREG) PO SCH (09:00)
--- NOTE | 2020-08-31 09:32 | NUR ---
MD ROUNDS Seen by Dr. Schafer.
[2020-08-31] MEDS ORDERED: SODIUM POLYSTYRENE SULFONATE 15 GM/60 ML UDBTL PO ONE (10:00)
[2020-08-31] MEDS: AZITHROMYCIN 500 MG in NS 250 ML IV SCH (10:07)
--- NOTE | 2020-08-31 10:41 | NUR ---
Notes- dialysis at bedside to do dialysis
[2020-08-31 13:00] VITALS: BP_SYST 167
--- NOTE | 2020-08-31 13:30 | NUR ---
Notes- dialysis done, patient wants to go home. Will Inform Dr. Marley.
[2020-08-31] MEDS ORDERED: DEC4 PO (13:51)
[2020-08-31] MEDS ORDERED: APIX2.5T PO (13:51)
--- NOTE | 2020-08-31 14:20 | NUR ---
DC Barriers: discussed dcp with dr. Marley: the pt is during HD. The md ordered dc plan to home if ok with ID and Covid positive management and medication needs for home.. >> Per ELEUTERIO Mo : Dr Marley called dr. Barraza and received the home prescription. The pt is ok to dc today.
[2020-08-31 14:28] VITALS: BP_SYST 169
[2020-08-31 15:50] VITALS: BP_SYST 165
--- NOTE | 2020-08-31 16:30 | NUR ---
Discharge patient home, ambulate, on room air, afebrile. Denies any pain or shortness of breath. discharge instruction and prescription given and discussed with patient. patient verbalize understanding. IVL removed.
== END 2020-08-31 16:30 | disposition home or self-care (01) | DRG 871 ==
LOC: SED 00:05 → STU 01:59 → SMU 08-30 16:51
PROVIDERS: ADMIT Preventive Medicine Preventive Medicine/Occupational Environmental Medicine; ATTEND Preventive Medicine Preventive Medicine/Occupational Environmental Medicine
PROC: 5A1D70Z Performance of Urinary Filtration, Intermittent, Less than 6 Hours Per Day (ICD-10-PCS; principal; 2020-08-27)
PROC: 5A1D70Z Performance of Urinary Filtration, Intermittent, Less than 6 Hours Per Day (ICD-10-PCS; 2020-08-28)
PROC: 5A1D70Z Performance of Urinary Filtration, Intermittent, Less than 6 Hours Per Day (ICD-10-PCS; 2020-08-31)
DX: A41.9 Sepsis, unspecified organism (principal); U07.1 COVID-19; N18.6 End stage renal disease; J96.01 Acute respiratory failure with hypoxia; J12.89 Other viral pneumonia; J15.9 Unspecified bacterial pneumonia; E43 Unspecified severe protein-calorie malnutrition; N25.81 Secondary hyperparathyroidism of renal origin; E87.1 Hypo-osmolality and hyponatremia; I12.0 Hypertensive chronic kidney disease with stage 5 chronic kidney disease or end stage renal disease; E11.21 Type 2 diabetes mellitus with diabetic nephropathy; E88.09 Other disorders of plasma-protein metabolism, not elsewhere classified; D63.8 Anemia in other chronic diseases classified elsewhere; D72.810 Lymphocytopenia; E87.5 Hyperkalemia; E83.39 Other disorders of phosphorus metabolism; E87.6 Hypokalemia; E11.22 Type 2 diabetes mellitus with diabetic chronic kidney disease; Z99.2 Dependence on renal dialysis; Z79.01 Long term (current) use of anticoagulants; Z56.0 Unemployment, unspecified
CPT/HCPCS: 36415; 36600; 71045; 80048; 80053; 82550-TC; 82728; 82803-TC; 83605; 83615-TC; 83735-TC; 83880; 84100-TC; 84484; 85025; 85379; 85384-TC; 85610-TC; 85651-TC; 85730-TC; 86140; 86886; 86900; 86901; 87040-TC; 87081; 93306; 94640; 94760; 96361; 96374; 99285; G0378; J0456; J0692; J0696; J1100; J1650; J2060; J2405; J7050; J7060; J7612; U0003